=== PATIENT | female | born 1945 | race Hispanic/Latino ===

== ENCOUNTER 2019-03-09 03:23 | Inpatient (IN) | payer MEDICARE ==
[~2019-03-09] VITALS: Ht 157.5 cm; Wt 61.3 kg
[~2019-03-09 03:23] MED LIST: ASPI-1005 PO; ATOR10 PO; Midodrine Hcl PO
[2019-03-09 04:03] LABS: BASOPHILS % (AUTO) 0.4 % (0.0-5.0); HEMATOCRIT 36.1 % (36-48); LYMPHOCYTES % (AUTO) 5.4 % (21.0-51.0); MEAN CORPUSCULAR HEMOGLOBIN 33.5 pg (27.0-33.0); MEAN CORPUSCULAR HGB CONC 34.3 g/dL (32.0-36.0); MEAN CORPUSCULAR VOLUME 97.5 fL (79-99); MONOCYTES % (AUTO) 4.6 % (3.0-13.0); NEUTROPHILS % (AUTO) 89.6 % (40.0-77.0); PLATELET COUNT (AUTO) 182 K/uL (130-400); RED BLOOD CELL COUNT(AUTO) 3.71 MIL/uL (4.00-5.50); WHITE BLOOD COUNT (AUTO) 7.5 K/uL (4.8-10.8)
[2019-03-09] MEDS ORDERED: SODIUM CHLORIDE 0.9% 1000ML 1,000 ML IV ONE ×3 (04:09→18:23)
[2019-03-09] MEDS ORDERED: ONDANSETRON HCL 4 MG/2 ML VIAL ONE (04:09)
[2019-03-09 04:13] LABS: PARTIAL THROMBOPLASTIN TIME 22.2 SEC (26.3-35.5); PROTHROMBIN TIME 10.5 SEC (9.6-11.6)
[2019-03-09 04:14] LABS: CARBON DIOXIDE 28 mmol/L (21-32); CHLORIDE 99 mmol/L (101-111); CREATININE 0.8 mg/dL (0.5-1.5); GLOMERULAR FILTR. RATE CALC 75 mL/min (>60); GLUCOSE,RANDOM 130 mg/dL (70-105); SODIUM SERUM 137 mmol/L (136-145); UREA NITROGEN, BLOOD 9 mg/dL (7-18)
[2019-03-09 04:26] LABS: ALANINE AMINOTRANSFERASE 11 U/L (12-78); ALBUMIN 3.9 g/dL (3.5-5.0); ASPARTATE AMINOTRANSFERASE 22 U/L (10-37); BILIRUBIN,TOTAL 0.6 mg/dL (0.2-1.0); CREATINE KINASE, TOTAL 178 U/L (21-232); MYOGLOBIN 157 ng/mL (10-92); TOTAL PROTEIN, SERUM 8.1 g/dL (6.0-8.3); TROPONIN I < 0.04 ng/mL (0.00-0.06)
[2019-03-09 05:45] LABS: APPEARANCE,URINE Clear (CLEAR); BILIRUBIN,URINE Negative (NEGATIVE); COLOR,URINE Yellow (YELLOW); GLUCOSE, URINE (UA) Negative (NEGATIVE); KETONES,URINE Negative (NEGATIVE); LEUKOCYTE ESTERASE ,URINE Negative (NEGATIVE); NITRATE,URINE Negative (NEGATIVE); OCCULT BLOOD,URINE Negative (NEGATIVE); PH,URINE 8.5 (5.0-8.0); PROTEIN,URINE Negative (NEGATIVE)
[2019-03-09] MEDS ORDERED: ACETAMINOPHEN EXTRA STRENGTH 500 MG TABLET ONE (05:48)
[2019-03-09] MEDS ORDERED: ACETAMINOPHEN ELIXIR 650 MG/20.3 ML UDCUP ONE (06:06)
[2019-03-09] MEDS ORDERED: CEFTRIAXONE SODIUM 1 GM ONE (06:06)
[2019-03-09] MEDS: PANTOPRAZOLE SODIUM 40 MG TABLET.DR PO SCH (07:30)
[2019-03-09] MEDS: ASPIRIN 325MG EC TAB 325 MG TABLET.DR PO SCH (09:00)
[2019-03-09] MEDS ORDERED: PANTOPRAZOLE SODIUM 40 MG TABLET.DR PO ONE (10:00)
[2019-03-09] MEDS ORDERED: ASPIRIN 325 MG TABLET ONE (10:00)
[2019-03-09 10:25] LABS: CREATINE KINASE, TOTAL 195 U/L (21-232); MYOGLOBIN 117 ng/mL (10-92); TROPONIN I < 0.04 ng/mL (0.00-0.06)
[2019-03-09 15:53] LABS: CREATINE KINASE, TOTAL 222 U/L (21-232); MYOGLOBIN 112 ng/mL (10-92); TROPONIN I < 0.04 ng/mL (0.00-0.06)
[2019-03-09] MEDS: SODIUM CHLORIDE 0.9% 1000ML 1,000 ML IV SCH (18:16)
[2019-03-09 23:00] VITALS: BP 114/68
--- NOTE | 2019-03-09 23:20 | NUR ---
REPORT RECEIVED FROM FRANK JUAREZ.
--- NOTE | 2019-03-10 | NUR ---
PT ARRIVED FROM ER. STABLE. ABLE TO AMBULATE WITH ASSIST. AA03 AT THE MOMENT. PT WAS CONFUSED UPON ARRIVAL TO ER. SHE STATES SHE IS UNABLE TO RECALL WHAT OCCURRED AND HOW SHE GOT TO ER. SHE HAS HISTORY OF [facility]NCOPE EPISODES. NO DISTRESS NOTED. PT ROOM AIR. IV FLUIDS IN PLACE. PT BRIEF WAS CHANGED AND [facility] CARE PROVIDED AT THIS TIME.
[2019-03-10 04:00] VITALS: BP 129/52
[2019-03-10] MEDS: SODIUM CHLORIDE 0.9% 1000ML 1,000 ML IV SCH ×3 (04:04→17:48)
[2019-03-10] MEDS: PANTOPRAZOLE SODIUM 40 MG TABLET.DR PO SCH (05:08)
[2019-03-10 07:30] VITALS: BP 138/58
[2019-03-10] MEDS: ASPIRIN 325MG EC TAB 325 MG TABLET.DR PO SCH (09:42)
[2019-03-10 11:00] VITALS: BP 138/67
[2019-03-10 16:00] VITALS: BP 131/70
== END 2019-03-10 19:45 | disposition home or self-care (01) | DRG 312 ==
LOC: EDH 03:23 → EDHIP 06:10 → 4CH 23:18
PROVIDERS: ADMIT Family Medicine; ATTEND Family Medicine
DX: R55 Syncope and collapse (principal); I10 Essential (primary) hypertension; R41.82 Altered mental status, unspecified; R50.9 Fever, unspecified
CPT/HCPCS: 36415; 70450; 71045; 80053; 81003; 82550; 83605; 83874; 84484; 85025; 85610; 85730; 87040; 87088; 93005; 93880; 97039; G0378; J0696; J2405; J7030

== ENCOUNTER 2019-12-20 10:01 | Observation (INO) | payer MEDICARE, OTHER ==
[~2019-12-20] VITALS: Ht 154.9 cm; Wt 64.9 kg
[2019-12-20 11:23] LABS: APPEARANCE,URINE Clear (CLEAR); BILIRUBIN,URINE Negative (NEGATIVE); COLOR,URINE Yellow (YELLOW); GLUCOSE, URINE (UA) Negative (NEGATIVE); KETONES,URINE Negative (NEGATIVE); LEUKOCYTE ESTERASE ,URINE Trace (NEGATIVE); NITRATE,URINE Negative (NEGATIVE); OCCULT BLOOD,URINE Negative (NEGATIVE); PH,URINE 5.5 (5.0-8.0); PROTEIN,URINE Negative (NEGATIVE)
[2019-12-20 11:25] LABS: EOSINOPHILS % (AUTO) 0.4 % (0.0-8.0); HEMATOCRIT 31.1 % (36-48); LYMPHOCYTES % (AUTO) 11.8 % (21.0-51.0); MEAN CORPUSCULAR HGB CONC 33.8 g/dL (32.0-36.0); MEAN CORPUSCULAR VOLUME 94.8 fL (79-99); PLATELET COUNT (AUTO) 188 K/uL (130-400); RED BLOOD CELL COUNT(AUTO) 3.28 MIL/uL (4.00-5.50); RED CELL DISTRIBUTION WIDTH 12.9 % (11.0-15.5)
[2019-12-20 11:27] LABS: ALBUMIN 3.5 g/dL (3.5-5.0); BILIRUBIN,TOTAL 0.7 mg/dL (0.2-1.0); CREATININE 0.8 mg/dL (0.5-1.5); POTASSIUM 3.8 mmol/L (3.5-5.1); TOTAL PROTEIN, SERUM 6.8 g/dL (6.0-8.3)
[2019-12-20 11:40] LABS: BACTERIA,URINE Few /HPF (None Seen); RBC,URINE 0-1 /HPF (0-1); SQUAMOUS EPITHELIAL CELL,UR 0-2 /HPF (0-2); WBC,URINE 0-1 /HPF (0-1)
[2019-12-20 12:32] LABS: INR 0.99 (0.85-1.15); PARTIAL THROMBOPLASTIN TIME 22.4 SEC (26.3-35.5); PROTHROMBIN TIME 10.7 SEC (9.6-11.6)
[2019-12-20] MEDS ORDERED: ACETAMINOPHEN 325 MG TAB PO PRN ×2 (13:00)
[2019-12-20] MEDS: CEFTRIAXONE SODIUM 1 GM IVP SCH (13:00)
[2019-12-20] MEDS ORDERED: DIAZEPAM 5 MG/ML 2 ML SYG IV PRN (13:00)
[2019-12-20] MEDS ORDERED: ONDANSETRON HCL 4 MG/2 ML VIAL IVP PRN (13:00)
[2019-12-20] MEDS ORDERED: HYDRALAZINE HCL 20 MG/ML VIAL IV PRN (13:00)
[2019-12-20] MEDS ORDERED: SODIUM CHLORIDE 0.9% 100 ML IV ONE (14:14)
[2019-12-20] MEDS ORDERED: LEVETIRACETAM 500 MG/5 ML SD VIAL IV ONE (14:14)
[2019-12-20] MEDS ORDERED: SODIUM CHLORIDE 0.9% 10 ML VIAL IVP PRN (15:00)
[2019-12-20] MEDS ORDERED: DiphenhydrAMINE HCL 50 MG/ML VIAL IVP PRN (15:00)
[2019-12-20] MEDS ORDERED: MAG HYDROX/AL HYDROX/SIMETH ES 30 ML SUSP UDCUP PO PRN (15:00)
[2019-12-20] MEDS ORDERED: ZOLPIDEM TARTRATE 5 MG TAB PO PRN (15:00)
[2019-12-20] MEDS ORDERED: LACTULOSE 20 GM/30 ML UDCUP PO PRN (15:00)
[2019-12-20] MEDS ORDERED: DIPHENHYDRAMINE HCL 25 MG CAPSULE PO PRN (15:00)
[2019-12-20] MEDS ORDERED: NITROGLYCERIN 0.4 MG SL TAB SL PRN (15:00)
[2019-12-20] MEDS ORDERED: GUAIFENESIN-DM 200/20 MG 10 ML PO PRN (15:00)
[2019-12-20] MEDS ORDERED: CLONIDINE HCL 0.1 MG TABLET PO PRN (15:00)
[2019-12-20] MEDS ORDERED: LEVETIRACETAM 1,000 MG in SODIUM CHLORIDE 0.9% 100 ML IV SCH (16:00)
[2019-12-20] MEDS ORDERED: PANTOPRAZOLE SODIUM 40 MG TABLET.DR ONE (22:44)
[2019-12-21 00:35] VITALS: BP 98/51
--- NOTE | 2019-12-21 00:45 | NUR ---
ADMIT PT ADMITTED TO ROOM 302, AAOX3. VERBALIZES OF NO RECOLLECTION OF WHAT HAPPENED TO HER. AND WAS ABLE TO COME THROUGH IN THE EMS TRANSPORT. ADMISSION CARE DONE. ADMISSION DATA BASE COMPLETED. IN FOR MORE CARE AND MANAGEMENT. CALL LIGHT WITHIN REACH. Addendum: 12/21/19 at 0240 by SONALI STAFFORD RN RN Amended: Links added.
[2019-12-21] MEDS: FAMOTIDINE/PF 20 MG/2 ML VIAL IV SCH ×3 (01:05→21:32)
[2019-12-21] MEDS: CEFTRIAXONE SODIUM 1 GM IVP SCH ×2 (01:05→12:40)
--- NOTE | 2019-12-21 02:00 | NUR ---
ROUNDS PT RESTING WELL, FAIRLY ASLEEP. NO DISTRESS NOTED. NO SEIZURE ACTIVITY NOTED. KEPT COMFORTABLE IN BED. CALL LIGHT WITHIN REACH. WILL MONITOR CLOSELY.
[2019-12-21] MEDS: LEVETIRACETAM 500 MG in SODIUM CHLORIDE 0.9% 100 ML IV SCH ×2 (04:22→18:23)
[2019-12-21 04:28] VITALS: BP 107/54
[2019-12-21 07:07] LABS: BASOPHILS % (AUTO) 0.4 % (0.0-5.0); EOSINOPHILS % (AUTO) 0.1 % (0.0-8.0); HEMATOCRIT 30.3 % (36-48); LYMPHOCYTES % (AUTO) 11.5 % (21.0-51.0); MEAN CORPUSCULAR HEMOGLOBIN 32.5 pg (27.0-33.0); MEAN CORPUSCULAR HGB CONC 33.7 g/dL (32.0-36.0); MEAN CORPUSCULAR VOLUME 96.5 fL (79-99); MONOCYTES % (AUTO) 4.6 % (3.0-13.0); NEUTROPHILS % (AUTO) 83.2 % (40.0-77.0); PLATELET COUNT (AUTO) 178 K/uL (130-400); RED BLOOD CELL COUNT(AUTO) 3.14 MIL/uL (4.00-5.50); RED CELL DISTRIBUTION WIDTH 13.2 % (11.0-15.5)
[2019-12-21 07:39] LABS: BILIRUBIN,TOTAL 0.9 mg/dL (0.2-1.0); CREATININE 0.8 mg/dL (0.5-1.5); POTASSIUM 3.6 mmol/L (3.5-5.1); TOTAL PROTEIN, SERUM 6.5 g/dL (6.0-8.3)
--- NOTE | 2019-12-21 07:40 | NUR ---
REPORT REPORT GIVEN TO MONSTER DEVINE. NURSE'S ROUNDS DONE. FOR MORE CARE. PENDING DR TIWARI CONSULT.
[2019-12-21 07:43] LABS: HEMOGLOBIN A1C 5.3 % (4.0-6.0)
[2019-12-21 08:00] VITALS: BP 118/58
[2019-12-21] MEDS: PANTOPRAZOLE SODIUM 40 MG TABLET.DR PO SCH (10:26)
[2019-12-21] MEDS: ENOXAPARIN SODIUM 30 MG/0.3 ML SQ SCH (10:28)
[2019-12-21 12:00] VITALS: BP 126/65
--- NOTE | 2019-12-21 14:02 | NUR ---
SPOKE TO SISTER BERNY JOHNSTON VIA PHONE- STATES IS MPOA/POA FOR PATIENTS STATES PATIENT HAS BEEN BLIND FOR MANY YEARS . BERNY DOES ALL PROVIDER CARE, HAS TRIED TWICE WITH [facility] TO GET PROVIDER SERVICES AND HAS BEEN DENIED. DOES NOT USE A WALKER, CANE OR WHEELCHAIR, WALKS WITH HAND HELD ASSIST AND IS CARE DEPENDENT. DCP IS HOME, CM O FOLLOW. call to jimenez pan to help with provider answers Addendum: 12/21/19 at 1428 by MARCIAL BENNETT RN CM Amended: Links added.
--- NOTE | 2019-12-21 14:28 | NUR ---
DISPO TO HOME IN CARE OF FAMILY WHEN CLEARED BY NEUROSURGERY Addendum: 12/21/19 at 1429 by MARCIAL BENNETT RN CM Amended: Links added.
--- NOTE | 2019-12-21 15:24 | NUR ---
CONSULT NEURO-SX SPOKE WITH DR KAMARA, STATED WOULD SEE PT IN AM.
[2019-12-21 16:00] VITALS: BP 125/63
[2019-12-21 21:09] VITALS: BP 108/65
--- NOTE | 2019-12-21 21:15 | NUR ---
NO SEIZURE ACTIVITY NOTED. REPORT GIVEN TO LARRY GONZALEZ. PT LEFT COMFORTABLE IN BED. BED LOCKED AND LOW WITH CALL LIGHT IN REACH.
[2019-12-22 00:30] VITALS: BP 119/63
[2019-12-22] MEDS: CEFTRIAXONE SODIUM 1 GM IVP SCH ×2 (01:26→16:12)
[2019-12-22 03:59] VITALS: BP 111/59
[2019-12-22 04:02] LABS: BASOPHILS % (AUTO) 0.9 % (0.0-5.0); HEMATOCRIT 30.5 % (36-48); LYMPHOCYTES % (AUTO) 15.9 % (21.0-51.0); MEAN CORPUSCULAR HEMOGLOBIN 31.4 pg (27.0-33.0); MEAN CORPUSCULAR HGB CONC 32.8 g/dL (32.0-36.0); MEAN CORPUSCULAR VOLUME 95.9 fL (79-99); MONOCYTES % (AUTO) 6.7 % (3.0-13.0); NEUTROPHILS % (AUTO) 75.2 % (40.0-77.0); PLATELET COUNT (AUTO) 163 K/uL (130-400); RED BLOOD CELL COUNT(AUTO) 3.18 MIL/uL (4.00-5.50); RED CELL DISTRIBUTION WIDTH 12.8 % (11.0-15.5); WHITE BLOOD COUNT (AUTO) 6.8 K/uL (4.8-10.8)
[2019-12-22 04:32] LABS: ALBUMIN 2.8 g/dL (3.5-5.0); BILIRUBIN,TOTAL 0.8 mg/dL (0.2-1.0); CREATININE 0.7 mg/dL (0.5-1.5); POTASSIUM 3.7 mmol/L (3.5-5.1); TOTAL PROTEIN, SERUM 6.7 g/dL (6.0-8.3)
[2019-12-22] MEDS: LEVETIRACETAM 500 MG in SODIUM CHLORIDE 0.9% 100 ML IV SCH (05:24)
[2019-12-22 09:04] VITALS: BP 131/63
[2019-12-22] MEDS: ENOXAPARIN SODIUM 30 MG/0.3 ML SQ SCH (10:25)
[2019-12-22] MEDS: FAMOTIDINE/PF 20 MG/2 ML VIAL IV SCH (10:25)
[2019-12-22] MEDS: PANTOPRAZOLE SODIUM 40 MG TABLET.DR PO SCH (10:25)
[2019-12-22 12:00] VITALS: BP 108/66
[2019-12-22] MEDS ORDERED: LEVETIRACETAM 500 MG TABLET PO SCH (15:00)
[2019-12-22] MEDS ORDERED: LEVO25TA54 PO (15:56)
[2019-12-22] MEDS ORDERED: MIDO5TAB4 PO (15:56)
--- NOTE | 2019-12-22 16:30 | NUR ---
NOTE DISCHARGE HOME WITH SISTER. PATIENT CAME IN WITH NEW ONSET SEIZURES ACCORDING TO THE STORY PATIENT HAD WITNESSED SEIZURE AT HOME. SHE WAS SEEN BY DR TIWARI AND DR KAMARA CONSULTED WITH NO NEED FOR SURGERY AT THIS TIME. SHE HAS BEEN WITHOUT SEIZURE ACTIVITY HERE AND SHE CONTINUES WITH SEIZURE MEDS. SPOKE TO SISTER IN TELEPHONE AND EXPLAINED HOME MEDS TO BE RESUMED, FOLLOW UP APPOINTMENTS AND NEW PRESCRIPTIONS. DC HOME NOW IN STABLE CONDITION.
== END 2019-12-22 17:09 | disposition home or self-care (01) ==
LOC: EDH 10:01 → EDHIP 13:53 → 3AH 12-21 00:48
PROVIDERS: ADMIT Family Medicine; ATTEND Family Medicine
DX: R56.9 Unspecified convulsions (principal); I10 Essential (primary) hypertension; E78.5 Hyperlipidemia, unspecified; H54.8 Legal blindness, as defined in USA; I67.2 Cerebral atherosclerosis; E78.00 Pure hypercholesterolemia, unspecified; Z79.899 Other long term (current) drug therapy
CPT/HCPCS: 36415 ×3; 70450; 70551; 71045; 80053 ×3; 80061; 81001; 82550; 83036; 83605; 83880; 84484; 85025 ×3; 85610; 85730; 93005; 93880; 95819; 96365; 96372 ×2; 96375; 96376 ×2; 99285; G0378 ×49; J0696 ×4; J1650 ×2; J1953 ×4; J3490 ×4